=== PATIENT | male | born 1960 | race African-American/Black ===

== ENCOUNTER 2020-04-12 16:12 | Emergency (ER) | payer OTHER, SELFPAY ==
--- NOTE | 2020-04-12 17:37 | RAD ---
Frontal radiograph chest 3 views of the left RIBS: 04/12/2020 COMPARISON: None HISTORY: Left-sided lower rib pain FINDINGS: Frontal radiograph chest demonstrates no pneumothorax, pleural fluid, focal consolidation, or alveolar edema. Heart and mediastinal contours appear grossly unremarkable. There is atherosclerotic calcification of the aortic arch. There is lower thoracic spine disc space narrowing and right lateral osteophyte formation. There is a probable old fracture of the left ninth rib. There is a corticated 4.2 cm osseous excresce nce/exophytic lesion associated with the proximal left humerus medially which could be on the basis of a osteochondroma or could be related to prior trauma. Nonemergent follow-up left shoulder MRI or C T advised. IMPRESSION: Incidental findings as detailed above. No acute osseous abnormality. CODE T
== END 2020-04-12 17:45 | disposition home or self-care (01) ==
LOC: MADERS 16:12
DX: M95.4 Acquired deformity of chest and rib (principal); N64.4 Mastodynia; I10 Essential (primary) hypertension; Z79.899 Other long term (current) drug therapy

== ENCOUNTER 2021-09-05 08:44 | Emergency (ER) | payer BC, SELFPAY | END 2021-09-05 09:24 | disposition home or self-care (01) | LOC: MADERS 08:44 | DX: S39.012A Strain of muscle, fascia and tendon of lower back, initial encounter (principal); I10 Essential (primary) hypertension; X50.0XXA Overexertion from strenuous movement or load, initial encounter; Z79.899 Other long term (current) drug therapy | CPT/HCPCS: 99283 ==